=== PATIENT | female | born 1975 | race Caucasian/White ===

== ENCOUNTER 2021-02-25 10:13 | Outpatient (REF) | payer OTHER, SELFPAY ==
[2021-02-25 14:28] LABS: Iron 64 mcg/dL (30-160); Percent Iron Saturation 17 % (15-50); Total Iron Binding Capacity 367 mcg/dL (228-428); Unsaturated Iron Binding 303 ug/dL
[2021-02-25 14:50] LABS: Ferritin 32 ng/mL (10-250); Free T4 (Free Thyroxine) 0.75 ng/dL (0.71-1.85); Thyroid Stimulating Hormone 2.01 uIU/mL (0.32-4.0); Vitamin D 25-OH Total 37.5 ng/mL (>30)
[2021-02-25 17:12] LABS: Vitamin B12 487 pg/mL (200-900)
== END 2021-02-25 10:14 | disposition home or self-care (01) ==
LOC: HO.MANLDS 10:13
PROVIDERS: PCP Internal Medicine; Visit Provider Physician Assistant
DX: L65.9 Nonscarring hair loss, unspecified (principal)
CPT/HCPCS: 36415; 82306; 82607; 82728; 82746; 83540; 84439; 84443

== ENCOUNTER 2022-04-10 09:59 | Outpatient (REF) | payer OTHER, SELFPAY ==
[2022-04-10 11:20] LABS: MANUAL DIFF FLAG NO
[2022-04-10 11:24] LABS: Basophils Absolute Auto 0.1 X10*3/uL (0.0-0.2); Basophils Percent Auto 0.8 % (0-2); Eosinophils Absolute Auto 0.1 X10*3/uL (0.0-0.4); Hemoglobin 11.6 g/dl (12.0-16.0); Imm Gran Abs Auto 0.02 X10*3/uL (0.00-0.03); Imm Gran Pct Auto 0.2 % (0.0-0.4); Lymphocytes Absolute Auto 2.4 X10*3/uL (1.2-4.9); Lymphocytes Percent Auto 23.8 % (20-40); Mean Corpuscular HGB Conc 31.4 g/dl (31.0-35.0); Mean Corpuscular Hemoglobin 28.2 pg (27.0-33.0); Mean Corpuscular Volume 89.8 fL (80.0-98.0); Mean Platelet Volume 9.7 fL (9.4-12.3); Monocytes Absolute Auto 0.4 X10*3/uL (0.1-1.2); Monocytes Percent Auto 4.4 % (2-11); Neutrophils Percent Auto 69.8 % (45-73); Platelet Count 366 X10*3/uL (160-400); Red Blood Count 4.12 X10*6/uL (4.20-5.50); Red Cell Distribution Width 13.9 % (11.0-16.0); White Blood Count 10.1 X10*3/uL (4.8-10.8)
[2022-04-10 11:55] LABS: Alanine Aminotransferase 10 U/L (0-31); Albumin Level 4.2 g/dL (3.5-5.0); Alkaline Phosphatase 80 U/L (39-117); Anion Gap 13 (12-20); Aspartate Amino Transferase 10 U/L (5-31); Bilirubin Total 0.6 mg/dL (0.0-1.0); Blood Urea Nitrogen 11 mg/dL (9-16); Calcium 9.3 mg/dL (8.4-10.2); Carbon Dioxide 26 mmol/L (22-29); Chloride 103 mmol/L (96-108); Cholesterol 183 mg/dL; Estimated Glomerular Filt Rate > 60; Glucose Random 93 mg/dL (60-115); HDL Cholesterol 42 mg/dL; Iron 67 mcg/dL (30-160); LDL Cholesterol Calculated 113 mg/dl; Percent Iron Saturation 14 % (15-50); Potassium 4.2 mmol/L (3.3-5.1); Sodium 138 mmol/L (135-145); Total Iron Binding Capacity 464 mcg/dL (228-428); Total Protein 7.6 g/dL (6.5-8.0); Triglycerides 144 mg/dL; Unsaturated Iron Binding 397 ug/dL
[2022-04-10 12:08] LABS: Ferritin 24 ng/mL (10-250); Free T4 (Free Thyroxine) 0.83 ng/dL (0.71-1.85); Thyroid Stimulating Hormone 2.08 uIU/mL (0.32-4.0); Vitamin D 25-OH Total 44.1 ng/mL (>30)
[2022-04-10 12:14] LABS: Estimated Average Glucose 114 mg/dL; Hemoglobin A1c % 5.6 %
[2022-04-10 12:22] LABS: Folate 16.6 ng/mL (> or = 4.0); Vitamin B12 681 pg/mL (200-900)
[2022-04-11 14:16] LABS: Calcium (PTHI) 9.7 mg/dL (8.6-10.2); PTHI 63 pg/mL (16-77)
== END 2022-04-10 10:00 | disposition home or self-care (01) ==
LOC: HO.MANLDS 09:59
PROVIDERS: Visit Provider Physician Assistant
DX: R73.01 Impaired fasting glucose (principal); R53.83 Other fatigue
CPT/HCPCS: 36415; 80053; 80061; 82306; 82607; 82728; 82746; 83036; 83540; 83970; 84439; 84443; 85025

== ENCOUNTER 2022-06-07 12:12 | Outpatient (REF) | payer OTHER, SELFPAY ==
[2022-06-07 17:44] LABS: Iron 44 mcg/dL (30-160); Percent Iron Saturation 10 % (15-50); Total Iron Binding Capacity 449 mcg/dL (228-428); Unsaturated Iron Binding 405 ug/dL
[2022-06-07 18:01] LABS: Ferritin 24 ng/mL (10-250)
== END 2022-06-07 12:13 | disposition home or self-care (01) ==
LOC: HO.MANLDS 12:12
PROVIDERS: Visit Provider Physician Assistant
DX: D64.9 Anemia, unspecified (principal)
CPT/HCPCS: 36415; 82728; 83540

== ENCOUNTER 2022-08-02 14:53 | Outpatient (REF) | payer OTHER, SELFPAY ==
[2022-08-02 18:28] LABS: Estimated Average Glucose 123 mg/dL; Hemoglobin A1c % 5.9 %
[2022-08-02 18:31] LABS: C Reactive Protein 4.35 mg/dL (< or = 0.50); Iron 39 mcg/dL (30-160); Percent Iron Saturation 8 % (15-50); Total Iron Binding Capacity 470 mcg/dL (228-428); Unsaturated Iron Binding 431 ug/dL; Uric Acid 4.8 mg/dL (2.4-5.7)
[2022-08-02 19:03] LABS: Erythrocyte Sedimentation Rate 44 MM/HR (0-20)
[2022-08-05 08:31] LABS: Follicle Stimulating Hormone 1.2 mIU/mL; Lutenizing Hormone 0.3 mIU/mL
[2022-08-07 16:41] LABS: Lyme Abs Screen <0.90 index
[2022-08-08 06:03] LABS: Vitamin B1 12 nmol/L (8-30)
[2022-08-08 14:18] LABS: Vitamin B6 3.7 ng/mL (2.1-21.7)
[2022-08-09 16:52] LABS: Progesterone <0.1 ng/mL
[2022-08-10 04:32] LABS: Estradiol Free 0.23 pg/mL; Estradiol, Ultrasensitive 16 pg/mL
== END 2022-08-02 14:54 | disposition home or self-care (01) ==
LOC: HO.MANLDS 14:53
PROVIDERS: Physician Assistant; Visit Provider Internal Medicine
DX: M25.571 Pain in right ankle and joints of right foot (principal); N95.1 Menopausal and female climacteric states
CPT/HCPCS: 36415; 82670; 82681; 83001; 83002; 83036; 83540; 84144; 84207; 84425; 84550; 85652; 86140; 86617; 86618

== ENCOUNTER 2024-08-01 10:08 | Outpatient (REF) | payer OTHER, SELFPAY ==
[2024-08-01 13:06] LABS: MANUAL DIFF FLAG NO
[2024-08-01 13:14] LABS: Basophils Absolute Auto 0.1 X10*3/uL (0.0-0.2); Basophils Percent Auto 0.6 % (0-2); Eosinophils Absolute Auto 0.2 X10*3/uL (0.0-0.4); Eosinophils Percent Auto 1.5 % (0-4); Hematocrit 40.3 % (37.0-47.0); Imm Gran Abs Auto 0.05 X10*3/uL (0.00-0.03); Imm Gran Pct Auto 0.5 % (0.0-0.4); Lymphocytes Absolute Auto 2.6 X10*3/uL (1.2-4.9); Lymphocytes Percent Auto 25.9 % (20-40); Mean Corpuscular HGB Conc 32.3 g/dl (31.0-35.0); Mean Corpuscular Hemoglobin 29.4 pg (27.0-33.0); Mean Corpuscular Volume 91.2 fL (80.0-98.0); Mean Platelet Volume 9.8 fL (9.4-12.3); Monocytes Absolute Auto 0.5 X10*3/uL (0.1-1.2); Neutrophils Absolute Auto 6.6 x10*3/uL (2.0-8.3); Neutrophils Percent Auto 66.5 % (45-73); Platelet Count 307 X10*3/uL (160-400); Red Blood Count 4.42 X10*6/uL (4.20-5.50); Red Cell Distribution Width 13.8 % (11.0-16.0); White Blood Count 9.9 X10*3/uL (4.8-10.8)
[2024-08-01 14:08] LABS: Folate 9.5 ng/mL (> or = 4.0); Vitamin B12 529 pg/mL (200-900)
[2024-08-01 14:13] LABS: Alanine Aminotransferase 12 U/L (0-31); Alkaline Phosphatase 88 U/L (39-117); Anion Gap 11 (12-20); Aspartate Amino Transferase 11 U/L (5-31); Bilirubin Total 0.4 mg/dL (0.0-1.0); Blood Urea Nitrogen 14 mg/dL (9-16); Calcium 9.4 mg/dL (8.4-10.2); Carbon Dioxide 28 mmol/L (22-29); Chloride 105 mmol/L (96-108); Cholesterol 187 mg/dL (<200); Estimated Glomerular Filt Rate > 60; Glucose Random 80 mg/dL (60-115); HDL Cholesterol 51 mg/dL (>40); Iron 61 mcg/dL (30-160); LDL Cholesterol Calculated 110 mg/dL (<100); Percent Iron Saturation 21 % (15-50); Potassium 4.1 mmol/L (3.3-5.1); Sodium 140 mmol/L (135-145); Total Iron Binding Capacity 290 mcg/dL (228-428); Total Protein 7.6 g/dL (6.5-8.0); Triglycerides 133 mg/dL (<150); Unsaturated Iron Binding 229 ug/dL
[2024-08-01 14:37] LABS: Ferritin 93 ng/mL (10-250); T4 Thyroxine 6.4 ug/dL (4.5-12.0); Thyroid Stimulating Hormone 2.26 uIU/mL (0.32-4.0)
== END 2024-08-01 10:09 | disposition home or self-care (01) ==
LOC: HO.MANLDS 10:08
PROVIDERS: Visit Provider Physician Assistant
DX: Z00.00 Encounter for general adult medical examination without abnormal findings (principal)
CPT/HCPCS: 36415; 80053; 80061; 82306; 82607; 82728; 82746; 83540; 84436; 84443; 85025

== ENCOUNTER 2025-08-19 09:36 | Outpatient (REF) | payer OTHER, SELFPAY ==
--- OUTSIDE RECORDS SUMMARY | 2025-08-19 11:07 | XMS_ITS | Data Portability ---
Author Organization [facility] Telehealth Patient Home Address [address] [place] [address] Assessment No assessment recorded. Plan of Treatment Reminders Order Date Submit Date Provider Last Modified By Organization Details Last Modified Time Details Appointments ANNUAL EXAM 2024 09:00A M ERNESTO KAUR Not available Not available Not available ANNUAL EXAM 2025 09:00A M ERNESTO KAUR Not available Not available Not available Lab ESR (erythroc yte sedimenta tion rate), blood 2024 [facility], [address] [place] [address], [id number], 08/19/2025 09:28:20 C-reactiv e protein, quantitat herminia, serum or plasma 2024 [facility], [address] [place] [address], [place], [address], 08/19/2025 09:28:20 hemoglobi n A1c, QN, blood 2024 [facility], [address] [place] [address], [id number], 08/19/2025 09:28:20 CMP, serum or plasma 2024 [facility], [address] [place] [address], [id number], 08/19/2025 09:28:20 CBC w/ auto diff 2024 025 [facility], [address] [place] [address], [id number], 08/19/2025 09:28:20 lipid panel, blood 2024 025 [facility], [address] [place] [address], [id number], 08/19/2025 09:28:20 TSH + free T4, serum 2024 025 [facility], [address] [place] [address], [id number], 08/19/2025 09:31:01 urinalysi s complete, reflex culture 2024 025 [facility], [address] [place] [address], [id number], 03/09/2025 23:56:46 urinalysi s, dipstick 2024 025 [facility], [address] [facility], [address], [place], [address], 03/09/2025 11:54:30 CMP, serum or plasma 2023 024 [facility], [address] [place] [address], [id number], 08/04/2024 16:31:08 CBC w/ auto diff 2023 024 [facility], [address] [place] [address], [id number], 08/01/2024 09:55:18 lipid panel, blood 2023 024 [facility], [address] [place] [address], [id number], 08/01/2024 09:55:18 vitamin D, 25-hydrox y, total, serum 2023 [facility], [address] [place] [address], [address], 08/01/2024 09:55:18 TSH + free T4, serum 2023 [facility], [address] [place] [address], [address], 08/01/2024 09:55:18 hemoglobi n A1c, QN, blood 2023 024 [facility], [address] [place] [address], [address], 08/01/2024 09:55:18 vitamin B12 + folate, serum or blood 2023 [facility], [address] [place] [address], [address], 08/01/2024 09:55:18 iron + TIBC + ferritin, serum 2023 [facility], [address] [place] [address], [id number], 08/01/2024 09:55:18 CMP, serum or plasma 2022 023 [facility] (Centralized Electronic Ordering - All Locations), Patient Can Go To The Location Of Their Choice, 07/26/2023 00:27:12 CBC w/ auto diff 2022 023 [facility] (Centralized Electronic Ordering - All Locations), Patient Can Go To The Location Of Their Choice, 07/24/2023 10:01:06 lipid panel, blood 2022 023 [facility] (Centralized Electronic Ordering - All Locations), Patient Can Go To The Location Of Their Choice, 07/24/2023 09:55:23 vitamin D, 25-hydrox y, total, serum 2022 023 [facility] (Centralized Electronic Ordering - All Locations), Patient Can Go To The Location Of Their Choice, 07/24/2023 09:55:24 TSH + free T4, serum 2022 023 [facility] (Centralized Electronic Ordering - All Locations), Patient Can Go To The Location Of Their Choice, 07/24/2023 09:55:23 hemoglobi n A1c, QN, blood 2022 023 [facility] (Centralized Electronic Ordering - All Locations), Patient Can Go To The Location Of Their Choice, 07/24/2023 09:55:24 vitamin B12 + folate, serum or blood 2022 023 [facility] (Centralized Electronic Ordering - All Locations), Patient Can Go To The Location Of Their Choice, 07/24/2023 09:55:24 iron + TIBC + ferritin, serum 2022 023 [facility] (Centralized Electronic Ordering - All Locations), Patient Can Go To The Location Of Their Choice, 07/24/2023 09:55:24 estradiol , serum 2021 [facility], [address] [place] [address], [id number], 08/10/2022 12:46:09 lh + FSH, serum 2021 [facility], [address] [place] [address], 359[address], 08/07/2022 11:36:16 progester one, serum 2021 [facility], [address] [place] [address], [address], 08/10/2022 12:46:09 ESR (erythroc yte sedimenta tion rate), blood 2021 [facility], [address] [place] [address], [address], 08/03/2022 12:09:20 C-reactiv e protein, quantitat herminia, serum or plasma 2021 [facility], [address] [place] [address], [address], 08/02/2022 14:40:32 uric acid, serum or plasma 2021 [facility], [address] [place] [address], [address], 08/03/2022 12:09:20 lyme disease igg+igm, serum, reflex western blot 2021 [facility], [address] [place] [address], 56[address], 08/02/2022 14:40:33 iron + TIBC + ferritin, serum 2021 [facility], [address] [place] [address], 599[address], 08/03/2022 12:09:20 vitamin B1 (thiamine ), blood 2021 [facility], [address] [place] [address], [address], 08/08/2022 13:11:49 vitamin B6 (pyridoxi ne), plasma 2021 [facility], [address] [place] [address], [address], 08/09/2022 12:28:43 hemoglobi n A1c, QN, blood 2021 [facility], [address] [place] [address], [address], 08/02/2022 14:40:33 Referral None recorded. Procedures None recorded. Surgeries None recorded. Imaging US, pelvis, complete - possible bilateral inguinal hernia 2022 023 [facility], [address] [place], [address], 07/25/2023 08:27:34 XR, foot, 3 or more view - BILATERAL FOOT XR 2021 022 [facility], [address] [place], [address], 08/08/2022 08:33:04 Medication Orders ondansetr on 8 mg disintegr ating tablet 2024 025 [id number], [address] [place], [place], [id number], 08/19/2025 09:24:36 Bactrim DS 800 mg-160 mg tablet 2024 025 [facility][id number], [address] [place] [address], [id number], 08/19/2025 09:02:18 Patient TargetsNo targets recorded. Patient InstructionsNo instructions recorded. Reason for Referral None Reported. Results Created Date Observation Date Name Description Value Unit Range Abnormal Flag Note LastModifiedBy Organization Detail LastModifiedTime 08/07/2008/07/2022 XR, foot, 3 or more view No observ ation record ed. [facility] [address] [place], [address], 08/08/2022 10:52:01 08/07/2008/07/2022 XR, foot, 3 or more view No observ ation record ed. [facility] [address] [place], [address], 08/08/2022 12:58:04 10/18/20 22 10/13/2022 MAMMO , scree mercedez, digit al, bilat eral No observ ation record ed. [facility] [address] [place], [address], 10/18/2022 17:10:41 08/13/20 23 08/13/2023 US, pelvi s, limit ed No observ ation record ed. [facility] [address] [place], [address], 08/14/2023 15:32:18 10/15/20 23 10/15/2023 MAMMO , scree mercedez, digit al, bilat eral No observ ation record ed. [facility] [address] [place], [address], 10/15/2023 16:26:51 01/08/20 25 01/07/2025 MAMMO , scree mercedez, digit al, bilat eral No observ ation record ed. [email or web address] [facility] - Callback Orders Only [address] [place], [address], 01/09/2025 08:30:57 02/28/20 25 02/27/2025 XR, lumbo sacra l spine , 2 or 3 view No observ ation record ed. [facility] Not Available 2024 16:38:55 Result Notes None recorded. Problems Name Problem SNOMED Code Status Onset Date Resolution Date Notes Provider Name and Address Organization Details Recorded Time Irritable bowel syndrome 88234739 Active 2017 Not Available [employer] 0 12:34:10 Anxiety 90436871 Active 2017 Not Available [employer] 0 12:34:10 Impaired fasting glycemia 569286663 Active 2017 ERNESTO KAUR [address] [facility], [place], [address], [facility] 5 09:24:57 Mild recurrent major depression 65605072 Active 2017 Not Available [employer] 0 12:34:10 Gastroesop hageal reflux disease 183724367 Active 2017 Not Available [employer] 0 12:34:10 Fatigue 83513756 Active 2021 ERNESTO KAUR [address] [place], [address], [facility] 2 09:40:28 Loss of hair 819311691 Active 2021 ERNESTO KAUR [address] [place], [address], [facility] 2 09:40:50 Dry skin 81814822 Active 2021 ERNESTO KAUR [address] [place], [address], [facility] 2 09:40:55 Overweight 942116542 Active 2021 ERNESTO KAUR [address] [place], [address], [facility] 2 09:52:26 Pain of multiple joints 98288636 Active 2021 ERNESTO KAUR [address] [place] [address], [address], [facility] 2 14:33:59 Menopausal flushing 326783195 Active 2021 ERNESTO KAUR [address] [place] [address], [address], [facility] 2 14:35:20 Foot pain 16857082 Active 2021 ERNESTO KAUR [address] [place] [address], [address], [facility] 2 14:37:34 Myalgia/my ositis - multiple 484335282 Active 2021 ERNESTO KAUR [address] [place] [address], [address], [facility] 2 12:58:38 Inguinal pain 128985270 Active 2022 ERNESTO KAUR [address] [place] [address], [address], [facility] 3 09:59:53 Colorectal cancer detected by DNA-based stool screening 087795917 Active 2023 ERNESTO KAUR [address] [place], [address], [facility] 4 15:37:54 Depressive disorder 41900073 Active 2023 ERNESTO KAUR [address] [place] [address], [address], [facility] 4 09:51:24 B-cell lymphoma (clinical) 543192074 Active 2023 ERNESTO KAUR [address] [place] [address], [address], [facility] 4 11:06:18 Low back pain 063945534 Active 2023 ERNESTO KAUR [address] [place] [address], [address], [facility] 4 11:06:32 Streptococ bella sore throat 99696291 Active 2024 ERNESTO KAUR [address] [place] [address], [address], [facility] 5 15:00:51 Lumbar radiculopa thy 046490272 Active 2024 ERNESTO KAUR [address] [place] [address], [address], [facility] 5 16:39:26 Sore throat 118565627 Active 2024 ERNESTO KAUR [address] [place] [address], [address], [facility] 5 12:46:53 Acute urinary tract infection 896947756 Active 2024 ERNESTO KAUR [address] [place] [address], [address], [facility] 5 11:47:49 Nausea 252959768 Active 2024 ERNESTO KAUR [address] [place], [address], [facility] 5 09:23:00 Chronic low back pain 048038444 Active 2024 ERNESTO KAUR [address] [place], [address], [facility] 5 09:25:48 Notes:Nevi ( Dr. Lauren Funez) Problem Notes None recorded. Procedures Surgical History Date Name Laterality Status Provider Name and Address Organization Details Recorded Time 5 Most Recent Mammogram completed Anca Drew [facility] 01/09/2025 08:30:34 8 completed Jia Lobo [facility] 09/13/2018 15:02:30 Imaging Results None recorded. Procedure Notes None recorded. Medical Equipment None Reported. Allergies No known drug allergies Medications Name Sig Start Date Stop Date Status Note LastModified by Organization Details LastModified Time cyclobenzap rine 10 mg tablet TK 1 T PO TID FOR 15 DAYS 02/25 completed Not Available Not Available Not Available amoxicillin 500 mg capsule 08/10 completed Not Available Not Available Not Available prednisone 10 mg tablet take 5 tabs x 3 daystake 4 tabs x 3 daystake 3 tabs x 3 daystake 2 tabs x 3 days take 1 tab x 3 days 11/04 completed Not Available Not Available Not Available azithromyci n 250 mg tablet TAKE 2 TABLETS (500 MG) BY ORAL ROUTE ONCE DAILY FOR 1 DAY THEN 1 TABLET (250 MG) BY ORAL ROUTE ONCE DAILY FOR 4 DAYS 08/19 completed Not Available Not Available Not Available ibuprofen 800 mg tablet Take 1 tablet 3 times a day by oral route. 11/21 completed Not Available Not Available Not Available hydrocodone 5 mg-acetamin ophen 325 mg tablet Take 1 tablet every 6 hours by oral route for 7 days. 08/10 completed Not Available Not Available Not Available clonazepam 0.5 mg tablet TAKE 1 TABLET BY MOUTH EVERY DAY NEEDED active Not Available Not Available No t Available valacyclovi r 500 mg tablet TAKE 2 TABLETS BY MOUTH THREE TIMES DAILY FOR 7 DAYS 08/01 completed Not Available Not Available Not Available sulfamethox azole 800 mg-trimetho prim 160 mg tablet TAKE 1 TABLET BY MOUTH EVERY 12 HOURS FOR 10 DAYS 08/19 completed Not Available Not Available Not Available triamcinolo ne acetonide 0.1 % topical cream APPLY TOPICALLY TO TRUNK AND EXTREMITI ES TWICE DAILY NEEDED FOR ITCHING. DO NOT USE ON FACE 08/19 completed Not Available Not Available Not Available ondansetron 8 mg disintegrat ing tablet Place 1 tablet twice a day by transling ual route as needed for 7 days. 2024 active Not Available Not Available Not Avai lable amoxicillin 875 mg tablet TAKE 1 TABLET BY MOUTH EVERY 12 HOURS FOR 7 DAYS DIRECTED 08/19 completed Not Available Not Available Not Available famotidine 20 mg tablet Take 1 tablet twice a day by oral route. 06/29 completed Not Available Not Available Not Available omeprazole 20 mg capsule,del ayed release Take 1 capsule every day by oral route. 08/19 completed Not Available Not Available Not Available methylpredn isolone 4 mg tablets in a dose pack FOLLOW PACKAGE DIRECTION S 08/19 completed Not Available Not Available Not Available ondansetron 4 mg disintegrat ing tablet PLACE 1 TABLET ON THE TONGUE AND ALLOW TO DISSOLVE TAKE EVERY 6 HOURS NEEDED FOR NAUSEA/VO MITING 08/01 completed Not Available Not Available Not Available escitalopra m 10 mg tablet TAKE 1 TABLET BY MOUTH EVERY DAY 2024 active Not Available Not Available Not Avai lable Laxative (bisacodyl) 5 mg tablet TAKE 4 TABLETS BY MOUTH FOR ONE DOSE DIRECTED 08/19 completed Not Available Not Available Not Available Wellbutrin XL 150 mg 24 hr tablet, extended release Take 1 tablet every day by oral route for 30 days. 08/10 completed Not Available Not Available Not Available escitalopra m 5 mg tablet TAKE 1 TABLET BY MOUTH EVERY DAY 07/24 completed Not Available Not Available Not Available chlorhexidi ne gluconate 0.12 % mouthwash SWISH AND SPIT 10 ML BY MOUTH THREE TIMES DAILY 08/19 completed Not Available Not Available Not Available GaviLyte-G 236 gram-22.74 gram-6.74 gram-5.86 gram oral solution MIX AND DRINK DIRECTED 08/01 completed Not Available Not Available Not Available Fluarix Quad 5175-5024 (PF) 60 mcg (15 mcg x 4)/0.5 mL IM syringe 02/25 completed Not Available Not Available Not Available Afluria Quad (PF) 60 mcg (15 mcg x 4)/0.5 mL IM syringe 02/25 completed Not Available Not Available Not Available Fluarix Quad (PF) 60 mcg (15 mcg x 4)/0.5 mL IM syringe 02/25 completed Not Available Not Available Not Available LoJaimiess 0.1 mg-20 mcg (84)/10 mcg (7) tablets,3 month dose pack TAKE 1 TABLET BY MOUTH DAILY active Not Available Not Available No t Available Afluria Qd 2019- (36 mos up)(PF)60 mcg (15 mcg x4)/0.5 mL IM syringe 02/25 completed Not Available Not Available Not Available Sutab 1.479-0.188 -0.225 gram tablet TAKE 12 TABLETS BY MOUTH TWICE DAILY. TAKE THE FIRST DOSE THE EVENING BEFORE AND SECOND DOSE THE MORNING OF COLONOSCO PY 08/01 completed Not Available Not Available Not Available Vitals Date Recorded Body height Heart rate Oxygen saturation Oxygen saturation in Arterial blood by Pulse oximetry Systolic And Diastolic Provider Name and Address Organization Details Last Updated DateTime 5 156.21 cm 85 /min 97 % 97 % 136/88 mm[Hg] Anca Jacobo [facility] 5 11:37:57 Date Recorded Body height Body mass index (BMI) Body weight Heart rate Oxygen saturation Oxygen saturation in Arterial blood by Pulse oximetry Systolic And Diastolic Provider Name and Address Organization Details Last Updated DateTime 3 156.21 cm 44.4 kg/m2 279899. 58 g 94 /min 97 % 97 % 126/78 mm[Hg] Lurdes Dickson [facility] 3 09:35:05 Date Recorded Body height Body mass index (BMI) Body weight Heart rate Oxygen saturation Oxygen saturation in Arterial blood by Pulse oximetry Systolic And Diastolic Provider Name and Address Organization Details Last Updated DateTime 4 156.21 cm 46 kg/m2 672708. 75 g 84 /min 96 % 96 % 122/82 mm[Hg] Anca Jacobo [facility] 4 09:37:28 Date Recorded Body height Oxygen saturation Oxygen saturation in Arterial blood by Pulse oximetry Heart rate Systolic And Diastolic Provider Name and Address Organization Details Last Updated DateTime 2 156.21 cm 98 % 98 % 96 /min 122/70 mm[Hg] Tisha Perezner [facility] 2 14:21:22 Date Recorded Body height Body mass index (BMI) Body weight Heart rate Oxygen saturation Oxygen saturation in Arterial blood by Pulse oximetry Systolic And Diastolic Provider Name and Address Organization Details Last Updated DateTime 5 156.21 cm 46.5 kg/m2 792040. 09 g 80 /min 94 % 94 % 130/68 mm[Hg] Renetta Finch [facility] 5 09:04:42 Social History Question Answer Notes LastModified by Organizat ion Details LastModified Time Tobacco Smoking Status Never Smoker Jia dai [facility] 05/22/2018 11:39:41 What Was The Date Of Your Most Recent Tobacco Screening? 08/19/2025 [email or web address] Information not available 08/19/2025 Sex: Unknown Functional Status None recorded. Mental Status None recorded. Family History Nothing Reported. Medical History Condition Response Coronary Artery Disease N Gout N Other N Kidney Stones N Blood Diseases N Blood Transfusion N Breast Cancer N Lung Disease N Depression N COPD N Defects or Inherited Disease N Anxiety Disorder N Muscle, Joint, or Bone Problems N Obesity N Vision or Eye Problems N Arthritis N Infertility N Polyps N Mental Disorder N Cancer N Stroke N Varicosities N Endometriosis N Bladder or Kidney Problems N High Cholesterol N Liver Disease N Fibromyalgia N Headaches N Kidney Disease N Allergies/Hayfever N Heart Problems N Hospitalizations N Thyroid Problems N GI Problems N Eating Disorder N Skin Problems N Anemia N MRSA exposure N Constipation N Mental Illness N Diabetes N Ovarian Cancer N Seizures/Epilepsy N Tuberculosis N Congestive Heart Failure (CHF) N Eczema N Abuse/Domestic Violence N Diverticulitis N Asthma N Reflux/GERD N Hepatitis N Heart Disease N Pulmonary Embolism N Hypertension N Chicken Pox N Autism Spectrum Disorder (ASD) N Osteoporosis N Gynecological History Statement/Question Response Abnormal Pap N 08/01/2018 Partner Vasectomy Current Control Method Partner Vas ectomy Most Recent Mammogram 01/07/2025 Age at Menarche 14 Age at First Child 29 Obstetrics History GPAL:G 0 P 0 0 0 0 Immunizations Vaccine Type Date Status Note Provider Nam e and Address Organization Details Recorded Time Influenza, split virus, quadrivalent, preservative 1 completed Ivy [facility] 07/24/2023 09:29:20 influenza, unspecified formulation 5 completed ERNESTO KAUR [address] [place] [address], [address], [facility] 08/19/2025 09:09:31 Influenza, split virus, quadrivalent, preservative 9 completed Ivy Duval [facility] 07/24/2023 09:29:20 Influenza, split virus, quadrivalent, preservative 0 completed Ivy dai, [facility] 07/24/2023 09:29:20 Tdap 0 completed Jia daiEdith [facility] 08/10/2020 11:46:46 COVID-19 vaccine, vector-nr, rS-ChAdOx1, PF, 0.5 mL 1 completed Ivy Duval [facility] 07/24/2023 09:29:20 COVID-19 vaccine, vector-nr, rS-ChAdOx1, PF, 0.5 mL 1 completed Ivy dai [facility] 07/24/2023 09:29:20 Influenza, split virus, quadrivalent, preservative 8 completed Ivy Duval [facility] 07/24/2023 09:29:20 Past Encounters Encounter ID Performer Location Encounter Start Date Encounter Closed Date Diagnosis/Indication Diagnosis SNOMED-CT Code Diagnosis ICD10 Code Diagnosis IMO Codes Diagnosis Note [id number] Rip Hamilton DO [facility] [address] [facility],[place] [address] 05/22/2018 11:31:24 05/22/2018 13:42:35 Adult health examination 371315726 Z00.01 healthy diet increase exercise Anxiety 75994085 F41.9 Mild recur rent major depression 37977805 F33.0 [id number] Rip Cathy Hamilton [facility] [address] [place] [address] 09/13/2018 14:58:35 09/13/2018 16:08:43 Anxiety 87686955 F41.9 stable Mild recur rent major depression 13987828 F33.0 stable Body mass index 30+ - obesity 798138043 Z68.36 healthy diet and exercise [id number] Rip Hamilton [facility] [address] [facility],[place] [address] 10/15/2018 15:10:33 10/15/2018 17:10:55 Acute low back pain 093404494 M54.5 Pain of ri ght hip joint 3741054738 97828 M25.551 [id number] Rip Hamilton [facility] Internal [facility] [address] [facility],[place] [address] 11/21/2019 08:53:41 11/21/2019 09:38:03 Adult health examination 334595024 Z00.00 healthy diet increase exercise Active or passive immunization 812079495 Z23 Mild recur rent major depression 54773473 F33.0 stable Anxiety 02861873 F41.9 a little worse this time of year stopped escitalopr am due to weight gain Vitamin D deficiency 347 39777 E55.9 Pain of mu ltiple joints 59283123 M25.50 [id number] Rip Hamilton [facility] [address] [facility],[place] [address] 08/10/2020 11:40:52 08/10/2020 13:27:45 Acute low back pain 771576350 M54.5 will check MRI now as PT was unsuccessf ul former pred taper and other medication trials unsuccessf ul Anxiety 97411672 F41.9 stable when she needs refill of [place] [id number] Rip Hamilton [facility] [address] [facility],[place] [address] 02/25/2021 09:48:38 02/25/2021 11:21:40 Low back pain 561987616 M54.5 will refer out to PT Gastroesop hageal reflux disease 791606980 K21.9 will send in referral Loss of hair 762998648 L 65.9 will work up for hair loss Anxiety 56847329 F41.9 the patient is not interested in maintenanc e when she needs refill of clonazapam this [place] [facility] [place] [id number] Rip Hamilton DO [facility] [address] [facility], [place] [address] 05/24/2021 08:10:01 05/24/2021 16:43:42 Anxiety 18894036 F41.9 will trial lexaprodid well on celexa, though it caused weight gaindiscus sed switching to lexapro per patient request, will fu at her CPE Mild recur rent major depression [id number] F33.0 will fu at CPE 22484 Rip Hamilton [facility] Internal Medicine [address] [facility], [place] [address] 06/29/2021 13:27:17 06/29/2021 14:04:12 Active or passive immunization [id number] Z23 advisedhad flu shot Adult heal th examination 829760359 Z00.00 BP recheck was 122/85 Anxiety 72403370 F41.9 will increase dosage Fatigue 25181796 R53.83 will fu with sleep medicine referral 23535 Rip Hamilton DO [facility] Internal Medicine [address] [facility], [place] [address] 04/10/2022 09:25:32 04/10/2022 11:31:08 Anxiety 96571638 F41.1 will continue on 5 mg, will adjust up again when needed Impaired f asting glycemia 765646844 R73.01 will recheck labs Fatigue 69529043 R53.83 will fu with lab-work Loss of hair 327938607 L 63.8 will work up for hair loss Dry skin 28916777 L85.3 increased dry skin Overweight 153824922 E66 .3 70483 Rip Hamilton [facility] Internal Medicine [address] [facility], [place] [address] 08/02/2022 14:15:40 08/02/2022 15:07:16 Pain of multiple joints 30375652 M25.571 will fu with more bloodwork Menopausal flushing 1983 05236 N95.1 will recheck hormone level Foot pain 78117591 M79.6 72 will fu with XR foot bilateral 29523 Rip Hamilton [facility] Internal Medicine [address] [facility], [facility] [place] [address] 07/24/2023 09:29:01 07/24/2023 10:06:23 Anxiety 10455295 F41.1 stable Gastroesop hageal reflux disease 026100490 K21.9 stable Active or passive immunization 072378978 Z23 advised Adult heal th examination 993805045 Z00.00 BP recheck was 126/78 Mild recur rent major depression 96534503 F33.0 stable Inguinal pain 819008750 R10.2 [id number] Rip Hamilton [facility] Internal Medicine [address] [facility],[place] [address] 08/01/2024 09:26:27 08/01/2024 10:04:29 Active or passive immunization 954608402 Z23 advised Adult heal th examination 057764564 Z00.00 BP recheck was 123/82 Depression screening 171 860762 Z13.31 SCREENING NEGATIVE Depressive disorder 3548 9007 F33.0 stable 606060 Rip Hamilton [facility] Internal Medicine [address] [facility], [facility] [place] [address] 03/09/2025 11:26:04 03/09/2025 15:04:39 Depression screening 565458055 Z13.31 SCREENING NEGATIVE Acute urin [place] tract infection 769190921 N39.0 4852123 positive leuks and nitratesha s period (spotting) explains bloodsome sugar 962260 Rip Hamilton [facility] Internal Medicine [address] [facility], [place] [address] 08/19/2025 08:55:31 08/19/2025 09:33:04 Depression screening 525154815 Z13.31 SCREENING NEGATIVE General ex amination of patient 217057652 Z00.00 389743 BP recheck was 123/82 Nausea 476974023 R11.0 70028 will set up with anti nausea medication Impaired f asting glycemia 607873330 R73.01 512993 will recheck labs Chronic low back pain 27 3703395 M54.40 G89.29 83361871 will set up with recheck inflammato ry makers Thyroid di sorder screening 201577428 Z13.29 109752 Health Concerns Section Related Observation LastModified by Organization Detai ls LastModified Time None Recorded Concern Status LastModified by Organization Details LastModified Time None Recorded Advance Directives Directive None Recorded Payers Insurance Date Sequence Insurance Name Policy Number Policy Zeng Covered Member ID Zeng Member ID Guarantor Name 08/16/2025 1 AMY [id number] Emir Donis [id number] Emir Donis Notes Date Note Type Note Provider Name and Address Organization Details Recorded Time 08/02/20 22 text/htm l ROS as noted in the HPI c/o hot flashes, joint pain will do full work up; additional labs from prior and hormone level check will also have patient do XR feet bilateral as well do see if she has significant plaque build up, arthritis, crystals will fu with patient after results ERNESTO KAUR [address] [place] [address], [place], [address], [facility] Internal Medicine 08/02/2022 14:48:37 07/24/20 23 text/htm l Annual WellnessReported by PatientSocial/Behavioral HistoryFor physical activity, patient reportsdoes not exercise on a regular basisanddecreased physical activitybut reportsgood physical conditionanddiscussed weightbearing activities. For diet and nutrition, patient reportshealthy diet,discussed vitamin and supplement use,discussed portion control,discussed maintaining calcium balance, anddiscussed diet improvement. For fracture risk, patient reportsno history of fractures,no recent explained fracture,no sudden unexplained fractures, andno previous musculoskeletal injuries. For additional lifestyle factors, patient reportsno tobacco useanddrinks alcohol (mild-moderate).Mental Status:For depression risk, patient reportsnever feels sad, empty, or tearful,no loss of interest in activities,no significant changes in weight,no sleep disturbances or insomnia,no agitation,no loss of energy,no feelings of worthlessness or guilt,no thoughts of suicide,no history of depression, andno history of mood disorders.Functional AbilityFor hearing, patient reportsno loss of hearing. For vision, patient reportsno vision problems. BP is excellent ERNESTO KAUR [address] [place], [address], [facility] Internal Medicine 07/24/2023 10:02:45 08/01/20 24 text/htm l Annual WellnessReported by PatientSocial/Behavioral HistoryFor diet and nutrition, patient reportshealthy diet,discussed vitamin and supplement use,discussed portion control,discussed maintaining calcium balance, anddiscussed diet improvement. For fracture risk, patient reportsno history of fractures,no recent explained fracture,no sudden unexplained fractures, andno previous musculoskeletal injuries. For physical activity, patient reportsexercises on a regular basis,recent increase in physical activity,good physical condition,discussed weightbearing activities, anddiscussed exercise habits. For additional lifestyle factors, patient reportsno tobacco useanddrinks alcohol (mild-moderate).Mental Status:For depression risk, patient reportsnever feels sad, empty, or tearful,no loss of interest in activities,no significant changes in weight,no sleep disturbances or insomnia,no agitation,no loss of energy,no feelings of worthlessness or guilt,no thoughts of suicide,no history of depression, andno history of mood disorders.Functional AbilityFor hearing, patient reportsno loss of hearing. For vision, patient reportsno vision problems.ROS as noted in the HPI the patient is currently taking a PPI for the GERD symptoms, has to wait until she does a full month of this before insurance will improve an endoscopyrecent colonoscopy was normal, working with GI to get a endoscopy the patient has shingles on the right upper arm, anteriorlyhappened in April saw UC, given anti-viral from them advised on the Tdap vaccine, also also next year at 50 y/o to get her shingles vaccine the patient has diffuse muscle pain, heart palpitations (feels like a flutter intermittently, no trigger), BP is elevatedongoing itchiness throughout the body? nura-menopause, recently stopped her BC so her DIVISIONAL STOREKEEPER can test her levels in a few months will also set her up for her routine lab work with some additional ERNESTO KAUR [address] [place], [address], [facility] Internal Medicine 08/01/2024 10:03:05 03/09/20 25 text/htm l ROS as noted in the HPI c/o UTI symptoms acute UTI symptomsstarted yesterday nightthe patient reports that she is having burning, frequency and mild incontinencepos leuks and nitrates on dipstickthe patient denies fever at this time the patient had a resp infection recently, very possible it could be why she has the UTI nowusing Azorecommended increasing water intake and reststart on alt abx urine sent out for culture ERNESTO KAUR [address] [place], [address], [facility] Internal [facility] 03/09/2025 11:53:15 08/19/20 25 text/htm l Annual WellnessReported by PatientSocial/Behavioral HistoryFor diet and nutrition, patient reportshealthy diet,discussed vitamin and supplement use,discussed portion control,discussed maintaining calcium balance, anddiscussed diet improvement. For fracture risk, patient reportsno history of fractures,no recent explained fracture,no sudden unexplained fractures, andno previous musculoskeletal injuries. For physical activity, patient reportsexercises on a regular basis,recent increase in physical activity, andgood physical condition. For additional lifestyle factors, patient reportsno tobacco useanddrinks alcohol (mild-moderate).Mental Status:For depression risk, patient reportsnever feels sad, empty, or tearful,no loss of interest in activities,no significant changes in weight,no sleep disturbances or insomnia,no agitation,no loss of energy,no feelings of worthlessness or guilt,no thoughts of suicide,no history of depression, andno history of mood disorders.Functional AbilityFor hearing, patient reportsno loss of hearing. For vision, patient reportsno vision problems.up to date with dentist appt'sROS as noted in the HPI the patient had to restart her BC due to continued bleedingthe patient has to restart PT for her back now that the bleeding has resolved ERNESTO KAUR [address] [place], [address], [facility] Internal Medicine 08/19/2025 09:32:15 OBGyn Episode No OBEpisode recorded.
--- OUTSIDE RECORDS SUMMARY | 2025-08-19 11:07 | XMS_ITS | Encounter Summary ---
Author Organization [facility] Address [address] [place] [address] Phone Care Team Providers Care Analytics Intern Name Role Phone Rip Hamilton DO Unavailable Bigda, Rip A DO Primary Care Provider [phone] Bigda, Rip A DO Primary Care Provider [phone] Encounter Details Date Type Department Care Team (Late Contact Info) Description 07/16/[address] [address] Social History Tobacco Use Types Packs/Day Years Used Date Smoking Tobacco: Never Smokeless Tobacco: Never Alcohol Use Standard Drinks/Week Comments Yes 0 (1 standard drink = 0.6 oz pur e alcohol) weekly Education Answer Date Recorded Are you interested in more education? Not on manjinder e 02/23/2023 Are you concerned about learning? Not on file 02/23/2023 No 02/23/2023 No 02/23/2023 Digital Access Answer Date Recorded No 03/23/2023 No 03/23/2023 Reliable internet access at home? Not on file 03/23/2023 Device with a working camera? 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 Not on file Not on file documented as of this encounter Plan of Treatment Upcoming Encounters Date Type Department Care Team (Late st Contact Info) Description 07/21/2025 Procedure [facility], [address] [address] 03/19/2026 7:45 AM EDT Appointment [address] [address] Perlita Hernandez MD [address] [place] [address] documented as of this encounter Visit Diagnoses Not on filedocumented in this encounter Care Teams Analytics Intern Relationship Specialty Start Date End Date Rip Hamilton DO PCP - General 11/01/17 08/06/25 Rip Hamilton DO [address] [place] [address] [place] [address] PCP - General Internal Medicine 08/07/25 Rip Hamilton DO Historical LMR Provider 08/14/17 documented as of this encounter Additional Source Comments The information contained in this document represents components of the legal health record. It is not the complete legal health record.[facility]
--- OUTSIDE RECORDS SUMMARY | 2025-08-19 11:07 | XMS_ITS | Encounter Summary ---
Author Organization [facility] Address [address] [place] [address] Phone Care Team Providers Care Biochemist Name Role Phone Rcahelgil Rip Kailey DO Unavailable Aracely Galdamez INDUSTRIAL TRUCK OPERATOR Unavailable [phone] Adia Suggs INDUSTRIAL TRUCK OPERATOR Unavailable [phone] Rochelle Martinez INDUSTRIAL TRUCK OPERATOR Unavailable [phone] Rip Hamilton DO Primary Care Provider [phone] Rip Hamilton DO Primary Care Provider [phone] Encounter Details Date Type Department Care Team (Late st Contact Info) Description 09/07/2021 Procedure Pass [address] [address] Social History Tobacco Use Types Packs/Day Years Used Date Smoking Tobacco: Never Smokeless Tobacco: Never Alcohol Use Standard Drinks/Week Comments Yes 0 (1 standard drink = 0.6 oz pur e alcohol) rarely Comments No Sex and Gender Information Value Date Recorded Sex Assigned at Not on file Legal Sex Female 9:28 PM EDT Gender Identity Not on file Sexual Orientation Not on file 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 [address] [place] [address] documented as of this encounter Visit Diagnoses Not on filedocumented in this encounter Care Teams Biochemist Relationship Specialty Start Date End Date Rip Hamilton DO PCP - General 11/01/17 08/06/25 Rip Hamilton DO [address] [place] [address] [place] [address] PCP - General Internal Medicine 08/07/25 Rip Hamilton DO Historical LMR Provider 08/14/17 Aracely Galdamez NP [address] [place] [address] Historical LMR Provider 08/14/172 2 Adia Suggs NP [address] [place] [address] Historical LMR Provider 08/14/1711/05/2 2 Rochelle Martinez NP [address] [place] [address] Historical LMR Provider 08/14/1711/05/2 2 documented as of this encounter Additional Source Comments The information contained in this document represents components of the legal health record. It is not the complete legal health record.[facility]
--- OUTSIDE RECORDS SUMMARY | 2025-08-19 11:07 | XMS_ITS | Encounter Summary ---
Author Organization [facility] Address [address] [place] [address] Phone Care Team Providers Care Nursing Executive Name Role Phone Rip Hamilton DO Unavailable Bigda, Rip A DO Primary Care Provider [phone] Bigda, Rip A DO Primary Care Provider [phone] Encounter Details Date Type Department Care Team (Late st Contact Info) Description 07/13/2022 Procedure Pass [address] [address] Social History Tobacco Use Types Packs/Day Years Used Date Smoking Tobacco: Never Smokeless Tobacco: Never Alcohol Use Standard Drinks/Week Comments Yes 0 (1 standard drink = 0.6 oz pur e alcohol) weekly Comments No Sex and Gender Information Value Date Recorded Sex Assigned at Not on file Legal Sex Female 9:28 PM EDT Gender Identity Not on file Sexual Orientation Not on file 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 Not on file Not on file documented as of this encounter Plan of Treatment Upcoming Encounters Date Type Department Care Team (Late st Contact Info) Description 07/21/2025 Procedure Pass [address] [address] 03/19/2026 7:45 AM EDT Appointment [address] [address] Perlita Hernandez MD [address] [facility], [address] [place] [address] [email or web address] documented as of this encounter Visit Diagnoses Not on filedocumented in this encounter Care Teams Nursing Executive Relationship Specialty Start Date End Date Rip Hamilton DO [email or web address] PCP - General 11/01/17 08/06/25 Rip Hamilton DO [address] [place] [address] PCP - General Internal Medicine 08/07/25 Rip Hamilton DO [email or web address] Historical LMR Provider 08/14/17 documented as of this encounter Additional Source Comments The information contained in this document represents components of the legal health record. It is not the complete legal health record.[facility]
--- OUTSIDE RECORDS SUMMARY | 2025-08-19 11:07 | XMS_ITS | Encounter Summary ---
Author Organization [facility] Address [address] [place] [address] Phone Care Team Providers Care Pickle Maker Name Role Phone Rip Hamilton DO Unavailable Aracely Galdamez SOLAR ENERGY INSTALLATION MANAGER Unavailable Adia Suggs SOLAR ENERGY INSTALLATION MANAGER Unavailable [phone] Rochelle Martniez SOLAR ENERGY INSTALLATION MANAGER Unavailable [phone] Alfonso Rip Bonner DO Primary Care Provider [phone] Bigda, Rip Kailey DO Primary Care Provider [phone] Encounter Details Date Type Department Care Team (Late st Contact Info) Description 11/06/2018 Ancillary Orders Virtual Department [address] [place] [address] Fartun De Leon, REKHA 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 on file Not on file documented as of this encounter Plan of Treatment Upcoming Encounters Date Type Department Care Team (Late st Contact Info) Description 07/21/2025 Procedure Pass [address] [address] 03/19/2026 7:45 AM EDT Appointment [address] [address] Perlita Hernandez MD [address] [place] [address] [address] [place] [address] documented as of this encounter Visit Diagnoses Diagnosis Hip pain, right Pain in joint, pelvic region and thigh Low back pain, unspecified back pain laterality, unspecified chronicity, with sciatica presence unspecified documented in this encounter Care Teams Pickle Maker Relationship Specialty Start Date End Date Rip Hamilton DO PCP - General 11/01/17 08/06/25 Rip Hamilton DO [address] [place] [address] [place] [address] PCP - General Internal Medicine 08/07/25 Rip Hamilton DO Historical LMR Provider 08/14/17 Aracely Galdamez NP [address] [place] [address] Historical LMR Provider 08/14/17 2 Adia Suggs NP [address] [place] [address] Historical LMR Provider 08/14/17 2 Rochelle Martinez NP [address] [place] [address] Historical LMR Provider 08/14/17 2 documented as of this encounter Additional Source Comments The information contained in this document represents components of the legal health record. It is not the complete legal health record.[facility]
--- OUTSIDE RECORDS SUMMARY | 2025-08-19 11:07 | XMS_ITS | Continuity of Care Document ---
Author Organization [facility] Address [address] [facility] [place] [address] [place] [address] Assessment No assessment recorded. Plan of Treatment Reminders Order Date Submit Date Provider Last Modified By Organization Details Last Modified Time Details Appointments ANNUAL EXAM 2024 09:00A M ERNESTO KAUR Not available Not available Not available ANNUAL EXAM 2025 09:00A M ERNESTO KAUR Not available Not available Not available Lab ESR (erythroc yte sedimenta tion rate), blood 2024 [facility], [address] [place] [address], [id number], 08/19/2025 09:28:20 C-reactiv e protein, quantitat herminia, serum or plasma 2024 [facility], [address] [place] [address], [place], [address], 08/19/2025 09:28:20 hemoglobi n A1c, QN, blood 2024 [facility], [address] [place] [address], [place], [address], 08/19/2025 09:28:20 CMP, serum or plasma 2024 [facility], [address] [place] [address], [id number], 08/19/2025 09:28:20 CBC w/ auto diff 2024 [facility], [address] [facility], [place], [address], 08/19/2025 09:28:20 lipid panel, blood 2024 [facility], [address] [facility], [place], [address], 08/19/2025 09:28:20 TSH + free T4, serum 2024 [facility], [address] [facility], [place], [address], 08/19/2025 09:31:01 Referral None recorded. Procedures None recorded. Surgeries None recorded. Imaging None recorded. Medication Orders ondansetr on 8 mg disintegr ating tablet 2024 [place] [id number], [address] [place] [address], [id number], 08/19/2025 09:24:36 Patient TargetsNo targets recorded. Patient InstructionsNo instructions recorded. Reason for Referral None Reported. Problems Name Problem SNOMED Code Status Onset Date Resolution Date Notes Provider Name and Address Organization Details Recorded Time Irritable bowel syndrome 12471089 Active 2017 Not Available [facility] 0 12:34:10 Anxiety 48163949 Active 2017 Not Available [facility] 0 12:34:10 Impaired fasting glycemia 903257857 Active 2017 ERNESTO KAUR [address] [place], [address], [facility] 5 09:24:57 Mild recurrent major depression 12619907 Active 2017 Not Available [facility] 0 12:34:10 Gastroesop hageal reflux disease 296169388 Active 2017 Not Available [facility] 0 12:34:10 Fatigue 82685805 Active 2021 ERNESTO KAUR [address] [place], [address], [facility] 2 09:40:28 Loss of hair 680093185 Active 2021 ERNESTO KAUR [address] [place], [address], [facility] 2 09:40:50 Dry skin 00003679 Active 2021 ERNESTO KAUR [address] [place], [address], [facility] 2 09:40:55 Overweight 191145325 Active 2021 ERNESTO KAUR [address] [place] [address], [address], [facility] 2 09:52:26 Pain of multiple joints 74882644 Active 2021 ERNESTO KAUR [address] [place] [address], [address], [facility] 2 14:33:59 Menopausal flushing 954897943 Active 2021 ERNESTO KAUR [address] [place] [address], [address], [facility] 2 14:35:20 Foot pain 91031351 Active 2021 ERNESTO KAUR [address] [place] [address], [address], [facility] 2 14:37:34 Myalgia/my ositis - multiple 617234985 Active 2021 ERNESTO KAUR [address] [place] [address], [address], [facility] 2 12:58:38 Inguinal pain 209239745 Active 2022 ERNESTO KAUR [address] [place] [address], [address], [facility] 3 09:59:53 Colorectal cancer detected by DNA-based stool screening 719367481 Active 2023 ERNESTO KAUR [address] [place] [address], [address], [facility] 4 15:37:54 Depressive disorder 50056857 Active 2023 ERNESTO KAUR [address] [place] [address], [address], [facility] 4 09:51:24 B-cell lymphoma (clinical) 329144339 Active 2023 ERNESTO KAUR [address] [place] [address], [address], [facility] 4 11:06:18 Low back pain 541855540 Active 2023 ERNESTO KAUR [address] [place] [address], [address], [facility] 4 11:06:32 Streptococ bella sore throat 57066031 Active 2024 ERNESTO KAUR [address] [place] [address], [address], [facility] 5 15:00:51 Lumbar radiculopa thy 363938035 Active 2024 ERNESTO KAUR [address] [place] [address], [address], [facility] 5 16:39:26 Sore throat 069398361 Active 2024 ERNESTO KAUR [address] [place] [address], [address], [facility] 5 12:46:53 Acute urinary tract infection 077205822 Active 2024 ERNESTO KAUR [address] [place] [address], [address], [facility] 5 11:47:49 Nausea 751155472 Active 2024 ERNESTO KAUR [address] [place] [address], [address], [facility] 5 09:23:00 Chronic low back pain 748251045 Active 2024 ERNESTO KAUR [address] [facility], [place], [address], [facility] 5 09:25:48 Notes:Khalif ( Dr. Lauren Funez) Problem Notes None recorded. Procedures Surgical History Date Name Laterality Status Provider Name and Address Organization Details Recorded Time 5 Most Recent Mammogram completed Anca Jacobo [facility] 01/09/2025 08:30:34 8 completed Jia Lashell [facility] 09/13/2018 15:02:30 Imaging Results [...] Available Not Available Not Available Fluarix Quad 8034-7683 (PF) 60 mcg (15 mcg x 4)/0.5 mL IM syringe 02/25 completed Not Available Not Available Not Available Afluria Quad 4163-3182 (PF) 60 mcg (15 mcg x 4)/0.5 mL IM syringe 02/25 completed Not Available Not Available Not Available Fluarix Quad 0924-7975 (PF) 60 mcg (15 mcg x 4)/0.5 [...] Not Available Vitals Date Recorded Body height Body mass index (BMI) Body weight Heart rate Oxygen saturation Oxygen saturation in Arterial blood by Pulse oximetry Systolic And Diastolic Provider Name and Address Organization Details Last Updated DateTime 5 156.21 cm 46.5 kg/m2 377770. 09 g 80 /min 94 % 94 % 130/68 mm[Hg] Renetta Finch [facility] 09:04:42 Social History Question Answer Notes LastModified by Organizat ion Details LastModified Time Tobacco Smoking Status Never Smoker Jia dai [facility] 05/22/2018 11:39:41 What Was The Date Of Your Most Recent Tobacco Screening? 08/19/2025 [email or web address] Information not available 08/19/2025 Sex: Unknown Functional Status None recorded. Mental Status None recorded. Family History Nothing Reported. Medical History Condition Response Coronary Artery Disease N Gout N Other N Kidney Stones N Blood Diseases N Blood Transfusion N Breast Cancer N COPD N Depression N Lung Disease N Defects or Inherited Disease N Anxiety [...] split virus, quadrivalent, preservative 1 completed Ivy dai [facility] 07/24/2023 09:29:20 influenza, unspecified formulation 5 completed ERNESTO KAUR [address] [place] [address], [address] 08/19/2025 09:09:31 Influenza, split virus, quadrivalent, preservative 9 [facility] 07/24/2023 09:29:20 Influenza, split virus, quadrivalent, preservative 0 completed Ivy dai [facility] 07/24/2023 09:29:20 Tdap 0 [facility] 08/10/2020 11:46:46 COVID-19 vaccine, vector-nr, rS-ChAdOx1, PF, 0.5 mL 1 completed Ivy dai [facility] 07/24/2023 09:29:20 COVID-19 vaccine, vector-nr, rS-ChAdOx1, PF, 0.5 mL 1 completed Ivy dai [facility] 07/24/2023 09:29:20 Influenza, split virus, quadrivalent, preservative 8 completed Ivy Duval [facility] 07/24/2023 09:29:20 Past Encounters Encounter ID Performer Location Encounter Start Date Encounter Closed Date Diagnosis/Indication Diagnosis SNOMED-CT Code Diagnosis ICD10 Code Diagnosis IMO Codes Diagnosis Note [id number] Rip BonnerKellie Ramosgil [facility] [address],[place] [address] 08/19/2025 08:55:31 08/19/2025 09:33:04 Depression screening 810006062 Z13.31 SCREENING NEGATIVE General ex amination of patient 773015998 Z00.00 121808 BP recheck was 123/82 Nausea 368763231 R11.0 83580 will set up with anti nausea medication Impaired f asting glycemia 931180172 R73.01 413390 will recheck labs Chronic low back pain 27 3422934 M54.40 G89.29 00205578 will set up with recheck inflammato ry makers Thyroid di sorder screening 697174982 Z13.29 913515 Health Concerns Section Related Observation LastModified by Organization Detai ls LastModified Time None Recorded Concern Status LastModified by Organization Details LastModified Time None Recorded Payers Encounter Date Sequence Insurance Name Policy Number Policy Zeng Covered Member ID Zeng Member ID Guarantor Name 08/19/2025 1 AMY [id number] Emir Donis [id number] Emir Donis Notes Date Note Type Note Provider Name a nd Address Organization Details Recorded Time 5 text/html Annual WellnessReported by PatientSocial/Behavio ral HistoryFor diet and nutrition, patient reportshealthy diet,discussed vitamin and supplement use,discussed portion control,discussed maintaining calcium balance, anddiscussed diet improvement. For fracture risk, patient reportsno history of fractures,no recent explained fracture,no sudden unexplained fractures, andno previous musculoskeletal injuries. For physical activity, patient reportsexercises on a regular basis,recent increase in physical activity, andgood physical condition. For additional lifestyle factors, patient reportsno tobacco useanddrinks alcohol (mild-moderate).Menta l Status:For depression risk, patient reportsnever feels sad, [...] that the bleeding has resolved ERNESTO KAUR [address] [place] [address], [address], [facility] 08/19/2025 09:32:15 OBGyn Episode No OBEpisode recorded.
--- OUTSIDE RECORDS SUMMARY | 2025-08-19 11:07 | XMS_ITS | Clinical Summary ---
Author Organization [facility] Address [address] [place] [address] Phone Care Team Providers Care Hides Inspector Name Role Phone Jose Montejo DO Unavailable Jose Montejo DO Primary Care Provider [phone] Allergies No known active allergies Medications therapeutic multivitamin tablet Take 1 tablet by mouth daily. Active clonazePAM (KLONOPIN) 0.5 MG tablet Take 0.5 mg by mouth 2 (two) times a day as needed for anxiety. Active escitalopram oxalate (LEXAPRO) 10 MG tablet escitalopram 10 mg tablet TAKE 1 TABLET BY MOUTH EVERY DAY Active levonorgestrel and ethinyl estradiol (LOSEASONIQUE) 0.1-0.02 mg (84) 0.10 mg (7) oral 3MPk Take 1 tablet by mouth daily. 91 tablet 3 5 Active Active Problems Problem Noted Date Diagnosed Date Premenstrual syndrome 01/03/2022 Overview (01/03/2022): Hx mood lability and nausea before menses. Assessment & Plan (01/03/2022 11:21 AM EST): We reviewed history of mood lability and nausea before menses. Emir will try continuous ocps as previously d/w Dr. Mercer. Irregular menses 05/26/2020 Overview (07/13/2020): Perimenopause, normal labs Assessment & Plan (01/08/2023 9:32 AM EDT): Emir will continue with ocps given history of irregular menses/bleeding. She is aware of risks, which were reviewed. She prefers to stay on current pill but will continue to use cyclically as she did have BTB with extended use. She will call when needs refills. Assessment & Plan (01/03/2022 11:22 AM EST): We reviewed long hx of irregular menses and PMS as previously d/w Dr. Mercer. Emir never started continuous ocps as Dr. Mercer recommended and wants to do so now. Risks, usage reviewed. Will check in and have bp check in six months. Assessment & Plan (07/13/2020 2:52 PM EDT): Will try the continuous OCPs Assessment & Plan (05/26/2020 9:55 AM EDT): May be due to recent weight gain, or possibly is post menopausal / perimenopausal Recommend labs and RTO for endometrial bx and discussion of tests and making plan (at least would give P replacement Q 4-6 weeks LEEANNE positive 05/12/2020 Assessment & Plan (05/12/2020 8:54 PM EDT): I have reviewed with Emir that borderline positive LEEANNE without additional abnormalities of concern in her history, on physical examination or available labs does not make any diagnosis and in fact lays within possible lab error.. She understands that she may return on as needed basis should her symptoms progress or anytime she has questions or problems. Gastroesophageal reflux disease without esophagi tis 05/12/2020 Assessment & Plan (05/12/2020 8:56 PM EDT): To limit frequency of Pepcid that she has been taking for 15 years. Avoid late, large, spicy meals. Keep headboard elevated at 45 angle for nighttime. Chronic midline low back pain without sciatica 0 05/12/2020 Assessment & Plan (05/12/2020 8:57 PM EDT): Joint protection, energy conservation. Gentle, regular exercise routine. Avoid falls, injuries, overuse, bending, stooping, heavy lifting and sudden turns. Keep body weight in ideal range for her height. She may benefit from topical cream such as Arnica, Biofreeze, Aspercreme versus medicated patches such as salonpas, icy hot patch 2-3 times daily and if necessary at bedtime x 3 weeks. Warm pool exercise may be gentlest way to return to regular exercise routine. Weight gain 05/12/2020 Assessment & Plan (05/12/2020 8:55 PM EDT): She admits that weight gain of about 20 pounds is unintentional and promises to work on losing it back with mostly dietary modifications and gradual, regular exercise routine as tolerated. I suggested her to consider warm pool exercise program at [facility] in [place] Vitamin D insufficiency 05/12/2020 Assessment & Plan (05/12/2020 8:56 PM EDT): Serum level requested to make sure that she does not need additional supplementation. Resolved Problems Problem Noted Date Diagnosed Date Resolved Date Abnormal uterine bleeding 05/10/2022 Overview (07/18/2022): With h/o irregular cycles; on continuous OCP Risk factors for EIN Benign endometrial biopsy and normal sonohysterogram Assessment & Plan (07/18/2022 1:35 PM EDT): Bleeding pattern is better taking the Seasonique 3 weeks on and 1 week off. She like to continue with this brand rather than switching to pill that comes packaged for weeks at a time No focal finding on sonohysterogram, endometrial biopsies better Assessment & Plan (05/10/2022 1:30 PM EDT): The pipelle today may not have sampled the endometrial cavity well- SHG ordered Advised taking 7 days off from the OCP then resuming, may have had some build- up of lining prior to OCP start and a week off may allow for this to slough off PAN I (cervical intraepithelial neoplasia I) 8 01/08/2023 Assessment & Plan (03/14/2018 8:11 AM EDT): PAN I 1999 Encounters Date Type Department Care Team Description 08/07/2025 5:00 PM EDT Office Visit [facility] [address] [address] Juliet Nair, Nelly Bean, [place] Acute upper respiratory infection (Primary Dx); Cough 07/21/2025 8:00 AM EDT Office Visit [facility] [address] [place] [address] Perlita Hernandez MD Encounter for gynecological examination without abnormal finding (Primary Dx) from Last 3 Months Immunizations Immunization Administration Dates Next Due COVID-19 (Pre-08/20) AstraZe neca Vaccine, rS-ChAdOx1, PF 02/06/2021,01/14/2021 INFLUENZA, SPLIT VIRUS, TRIVALENT PF 08/14/2024, 08/12/2016 INFLUENZA, SPLIT VIRUS, TRIV ALENT W/ PRESERVATIVE IM 06/28/2021,08/07/2010 Influenza Quadrivalent MDCK Preservative Free IM 08/23/2022 Influenza Quadrivalent Prese rvative Free IM 06/17/2020,07/29/2019,07/07/2018,2016,07/17/2015 Influenza Quadrivalent w/ Preservative IM 06/28/2021,06/17/2020,07/29/2019,2017 Influenza Recombinant Trival ent Preservative Free IM 07/03/2025 Tdap 08/14/2024,10/29/2009 Family History Medical History Relation Comments Hypertension Father Cancer Maternal Grandfather Breast cancer Neg Hx Relation Status Comments Brother 1 Alive Brother 2 Alive Father Alive Maternal Grandfather Mother Alive Social History Tobacco Use Types Packs/Day Years Used Date Smoking Tobacco: Never Smokeless Tobacco: Never Tobacco Cessation:Counseling Given: Not Answered Alcohol Use Standard Drinks/Week Comments Yes 0 (1 standard drink = 0.6 oz pur e alcohol) socially Education Answer Date Recorded Are you interested in more education? Not on manjinder e 02/23/2023 Are you concerned about learning? Not on file 02/23/2023 No 02/23/2023 No 02/23/2023 Digital Access Answer Date Recorded No 03/23/2023 No 03/23/2023 Reliable internet access at home? Not on file 03/23/2023 Device with a working camera? Not on file Intimate Partner Violence Answer Date R ecorded Are you denied basic needs s uch as food, clothing, or medical care? No 03/13/2024 In the past 12 months have y ou been in a relationship with a person who hurts, threatens, or tries to control you? No 03/13/2024 Are you denied basic needs s uch as food, clothing, or medical care? No 03/13/2024 In the past 12 months have y ou been in a relationship with a person who hurts, threatens, or tries to control you? 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 Not on file Not on file Last Filed Vital Signs Vital Sign Reading Time Taken Comments Blood Pressure 160/100 08/07/2025 5:14 PM EDT Pulse 108 08/07/2025 5:14 PM EDT Temperature 36.7 C (98.1 F) 08/07/2025 5:14 PM EDT Respiratory Rate 18 08/07/2025 5:14 PM EDT Oxygen Saturation 98% 08/07/2025 5:14 PM EDT Inhaled Oxygen Concentration - - Weight 117.7 kg (259 lb 6.4 oz) 07/21/2025 8:01 AM EDT Height 154.9 cm (5' 0.98 ) 07/21/2025 8:01 AM ED T Body Mass Index 49.04 07/21/2025 8:01 AM EDT Plan of Treatment Upcoming Encounters Date Type Department Care Team (Late st Contact Info) Description 07/21/2025 Procedure Pass [address] [address] 03/19/2026 7:45 AM EDT Appointment [address] [address] Perlita Hernandez MD [address] [place] [address], [address] [place] [address] [email or web address] Health Maintenance Due Date Last Done Comments LIPID PANEL 1975 DEPRESSION SCREENING 1987 HEPATITIS C SCREENING 1993 HIV ONE-TIME SCREENING (18-65 YEARS) 1993 COLOGUARD 2020 FIT TEST 2020 FOBT 2020 SIGMOIDOSCOPY 2020 VIRTUAL COLONOSCOPY 2020 SCREENING FOR DIABETES 05/05/2024 05/05/2021 COVID-19 VACCINE (2024- season) 2025 10/13/2021, 02/06/2021, 02/06/2021, Additional history exists PNEUMOCOCCAL VACCINES (50+ years) (1 of 1 - PCV) 2025 RSV VACCINE (1 - Risk 50-74 years 1-dose series) 2025 ZOSTER VACCINES (1 of 2) 2025 MAMMOGRAM 01/07/2027 01/07/2025, 09/28, 10/13/2022, Additional history exists PAP SMEAR 01/09/2028 01/08/2023, 02/26, 03/14/2018 COLONOSCOPY 03/13/2034 03/13/2024 COLORECTAL CANCER SCREENING 03/13/2034 Adult Td,Tdap Booster 08/14/2034 08/14/2024, 010 INFLUENZA VACCINE Completed 07/03/2025, , 08/23/2022, Additional history exists SMOKING STATUS SCREENING (Once After 26 Yrs) Completed 08/07/2025 HEPATITIS A VACCINES Aged Out No long er eligible based on patient's age to complete this topic HIB VACCINES Aged Out No longer eligi ble based on patient's age to complete this topic MENINGOCOCCAL VACCINES (ACWY) Aged Out No longer eligible based on patient's age to complete this topic MENINGOCOCCAL VACCINES (B) Aged Out N o longer eligible based on patient's age to complete this topic Medical Devices Not on file Procedures Procedure Name Priority Date/Time Associated Diagnosis Comments POCT COVID-19 RT-PCR/INFLUENZA A & B/RSV CEPHEID Routine 08/07/2025 5:45 PM EDT Cough POCT RAPID STREP A Routine 08/07/2025 5: 17 PM EDT Cough BI MAMMOGRAM SCREENING WITH TOMOSYNTHESIS WITH CAD (BILATERAL) Routine 01/07/2025 7:53 AM EDT Visit for screening mammogram ENDOSCOPY, COLON 03/13/2024 11:3 2 AM EDT PAP TEST Routine 01/08/2023 12:00 AM EDT from Last 3 Months or Most Recently Relevant to Health Maintenance Results * POCT COVID-19 RT-PCR/Influenza A & B/RSV (Cepheid) (08/07/2025 5:45 PM EDT) [facility] RSV PCR Negative Negative [facility] SARS-CoV-2 (COVID-19) Negative Negative [facility] Influenza A PCR Negative Negative [facility] Influenza B PCR Negative Negative [facility] 08/07/2025 5:45 PM EDT 08/07/2025 6:25 PM EDT Nelly Nair [facility] POINT OF CARE TEST AMANDA YOUNG Final Result [facility] [address] [address], [place] [phone] * POCT Rapid Strep A (08/07/2025 5:17 PM EDT) [facility] Strep A, PCR Not Detected Not Detected C HilarioOLEMitchell [facility] 08/07/2025 5:17 PM EDT 08/07/2025 5:45 PM EDT us Nelly Clarke Korey SENIOR PROCUREMENT SPECIALIST POINT OF CARE TEST AMANDA YOUNG Final Result [facility] [address] [address], [place] [phone] * BI MAMMOGRAM SCREENING WITH TOMOSYNTHESIS WITH CAD (BILATERAL) (01/07/2025 7:53 AM EDT) Anatomical Region Laterality Modality Breast Left, Breast Right, Breast Bilateral Bila teral Mammography 01/07/2025 5:06 PM EDT Impressions 01/07/2025 5:12 PM EDT No mammographic evidence of malignancy in either breast. Annual screening mammography is recommended. BI-RADS 1 NEGATIVE The patient will be notified of the results and recommendations. Narrative 01/07/2025 5:12 PM EDT BI MAMMOGRAM SCREENING WITH TOMOSYNTHESIS WITH CAD (BILATERAL) Additional patient information: Screening. COMPARISON: Comparison is made with relevant prior imaging. Breast composition: The breast tissue is almost entirely fatty. FINDINGS: No abnormal masses, suspicious calcifications, or other significant findings are identified mammographically in either breast. Procedure Note Kulwant Brewer MD - 01/07/2025 BI MAMMOGRAM SCREENING WITH TOMOSYNTHESIS WITH CAD (BILATERAL) Additional patient information: Screening. COMPARISON: Comparison is made with relevant prior imaging. Breast composition: The breast tissue is almost entirely fatty. FINDINGS: No abnormal masses, suspicious calcifications, or other significantfindings are identified mammographically in either breast. IMPRESSION: No mammographic evidence of malignancy in either breast. Annual screening mammography is recommended. BI-RADS 1 NEGATIVE The patient will be notified of the results and recommendations. us Jose A Bigda DO IMG MG EXAMS Final Result * ENDOSCOPY, COLON (03/13/2024 11:32 AM EDT) Narrative Transcriptions Errol Galeas MD - 03/13/2024 11:32 AM EDT [facility] Patient Name: Emir Randall Attending MD:: ERROL GALEAS MD, Procedure Date: 03/13/2024 11:32 AM Date of : 1975 Age: 48 Admit Type: Outpatient Gender: Female Room: [facility] Referring MD: JOSE MONTEJO DO Exam Type: Colonoscopy Indications: This is the patient's first colonoscopy, Positive Cologuard test Medications: Monitored Anesthesia Care Procedure: Informed consent was obtained from the patientafter discussion of the indications, limitations, alternatives, benefits, and risks of the procedure. Risks specifically discussed include but are not limited to medication reactions, missed lesions, bleeding, perforation, or the need for emergent surgery. Throughout the procedure, the patient's blood pressure, pulse, end-tidal CO2, and oxygensaturations were monitored continuously. The Olympus adult variable colonoscope [id number] #1 was introduced through the anus and advanced to the cecum, identified by the appendiceal orifice, ileocecal valve and palpation. The colonoscopy was performed without difficulty. The patient tolerated the procedure well. The quality of the bowel preparation was good. The ileocecal valve,appendiceal orifice, and rectum were photographed. Complications: No immediate complications. Estimated blood loss:None. Findings: The perianal and digital rectal examinations were normal. Pertinent negatives include normalsphincter tone. Retroflexion in the right colon was performed. A few small-mouthed diverticula were found in the sigmoid colon. Non-bleeding internal hemorrhoids were found during retroflexion. The hemorrhoids were moderate. The exam was otherwise without abnormality ondirect and retroflexion views. Impression: - Diverticulosis in the sigmoid colon. - Non-bleeding internal hemorrhoids. - The examination was otherwise normal on directand retroflexion views. - No specimens collected. Recommendation: - Reassurance - Repeat colonoscopy in 10 years for screening purposes. ERROL GALEAS MD 03/13/2024 11:57:14 AM This report has been signed electronically. Number of Addenda: 0 Note Initiated On: 03/13/2024 11:32 AM Procedure Code(s): --- Professional --- 75037, Colonoscopy, flexible; diagnostic, including collection of specimen(s) by brushing or washing, when performed (separateprocedure) --- Technical --- 64633, Colonoscopy, flexible; diagnostic, including collection of specimen(s) by brushing or washing, when performed (separateprocedure) Diagnosis Code(s): --- Professional --- K64.8, Other hemorrhoids R19.5, Other fecal abnormalities K57.30, Diverticulosis of large intestine without perforation or abscess without bleeding --- Technical --- K64.8, Other hemorrhoids R19.5, Other fecal abnormalities K57.30, Diverticulosis of large intestine without perforation or abscess without bleeding CPT copyright 2021 [employer]. All rights reserved. The codes documented in this report are preliminary and upon hot air furnace installer and repairer reviewmay be revised to meet current compliance requirements. Procedure Date: 03/13/2024 11:32:[address] [place] [address] us Jose A Bigda DO GI PROCEDURE ORDERABLES Final Re sult * Pap Test (01/08/2023 12:00 AM EDT) 01/08/2023 01/09/2023 9:4 6 AM EDT Narrative SEE NARRATIVE - 01/15/2023 11:31 AM EDT [address] [address] Diesel Machinist: Jesenia Bahena MD MOTOR AND GENERATOR ASSEMBLER Cytology Report FINAL DIAGNOSIS A. PAP SMEAR (SUREPATH) CE: SPECIMEN ADEQUACY: Satisfactory for evaluation; transformation zone present. INTERPRETATION: NEGATIVE FOR INTRAEPITHELIAL LESION OR MALIGNANCY. Electronically Signed Out By: CHANI Cardoza(ASCP) The Pap test is a screening test primarily for squamous cancers and precursors and has associated false-negative and false-positive results. New technologies such as liquid-based preparations may decrease but will not eliminate all false-negative results. Regular sampling and follow-up of unexplained clinical signs and symptoms are recommended to minimize false negative results. PROCEDURES/ADDENDA HPV Testing (Requested) Ordered Date: 01/09/2023 A. PAP SMEAR (SUREPATH) CE: Human Papilloma Virus Test NEGATIVE for high-risk Human Papilloma Virus types 16, 18, 45 and the Other high risk probe set (Includes 31, 33, 35, 39, 51, 52, 56, 58, 59, 66, 68) Note: Testing performed by [employer] HR-HPV analysis. Clinical correlation is advised. This HPV test was performed at [facility], [address] [place] [address]. This test has been FDA approved for SurePath cervical cytology specimens. The accuracy and precision of this test for all other specimen sources has been verified in the Cytopathology Laboratory of the [facility] and has not been cleared or approved by the U.S. Food and Drug Administration. Clinical correlation is advised. CLINICAL HISTORY Date of Last Menstrual Period: 12-29-2022 Other Clinical Conditions: Screening Pap SPECIMEN SOURCE A: PAP SMEAR (SUREPATH) CE Patient Name: EMIR RANDALL : 1975 (Age: 47) Sex: F Institution: [facility] Location: [facility] Date of Collection: 01/08/2023 Date of Reported: 01/15/2023 11:31 Results to: Ne Murcia MSN, BS Ne Murcia ESTIMATOR PRINTING PLATE MAKING CYTOLOGY ORDERABLES Final Resu lt SEE NARRATIVE from Last 3 Months or Most Recently Relevant to Health Maintenance Insurance CIGNA PPO CIGNA PPO CIGNA PPO CIGNA PPO CIGNA PPO CIGNA PPO CIGNA PPO CIGNA PPO CIGNA PPO Care Teams Hides Inspector Relationship Specialty Start Date End Date Jose Montejo DO [address] [place] [id number] PCP - General Internal Medicine 08/07/25 Jose Montejo DO [email or web address] Historical LMR Provider 08/14/17 Additional Source Comments The information contained in this document represents components of the legal health record. It is not the complete legal health record.[facility] Rachid
--- OUTSIDE RECORDS SUMMARY | 2025-08-19 11:07 | XMS_ITS | Encounter Summary ---
Author Organization [facility] Address [address] [place] [address] [place] [phone] Phone Care Team Providers Care Correspondence Renew Clerk Name Role Phone Alfonso Rip Kailey DO Unavailable Aracely Galdamez COAT FELLER Unavailable [phone] Adia Suggs COAT FELLER Unavailable Rochelle Martinez COAT FELLER Unavailable Rip Hamilton Kailey Primary Care Provider [phone] Rip Hamilton Kailey DO Primary Care Provider [phone] Encounter Details Date Type Department Care Team (Late Contact Info) Description 08/10/2020 Ancillary Orders Virtual Department [address] [place] [address] Rip Hamilton DO [address] [facility] [place] [address] [place] [address] Breast screening Social History Tobacco Use Types Packs/Day Years [...] 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 Not on file Not on file documented as of this encounter Plan of Treatment Upcoming Encounters Date Type Department Care Team (Late Contact Info) Description 07/21/2025 Procedure Pass [address] [address] 03/19/2026 7:45 AM EDT Appointment [address] [address] Perlita Hernandez MD [address] [facility], [address] [place] [address] [email or web address] documented as of this encounter Results * BI MAMMOGRAM SCREENING WITH TOMOSYNTHESIS WITH CAD (BILATERAL) (10/08/2020 8:22 AM EST) Anatomical Region Laterality Modality Breast Left, Breast Right, Breast Bilateral Bila teral Mammography 10/08/2020 1:15 PM EST Impressions 10/08/2020 1:19 PM EST BILATERAL BREASTS: Negative, no evidence of malignancy. Normal interval follow- up is recommended in 12 months. Bi-RADS: BI-RADS CATEGORY: 1 - Negative. DENSITY: There are scattered fibroglandular densities. Narrative 10/08/2020 1:19 PM EST STUDY: Bilateral screening mammography with tomosynthesis and CAD TECHNIQUE: Bilateral full-field digital screening mammography is obtained and read in conjunction with computer-aided detection. Tomosynthesis as well as 2-D C view imaging were obtained. COMPARISON: Comparison made to multiple prior, most recent August 01, 2018, and most remote November 05, 2015. BREAST COMPOSITION: There are scattered areas of fibroglandular density BILATERAL BREASTS: No significant masses, suspicious calcifications or other abnormalities are seen. Procedure Note Sandra Paula MD - 10/08/2020 STUDY: Bilateral screening mammography with tomosynthesis and CAD TECHNIQUE: Bilateral full-field digital screening mammography is obtainedand read in conjunction with computer-aided detection. Tomosynthesis aswell as 2-D C view imaging were obtained. COMPARISON: Comparison made to multiple prior, most recent July, and most remote November 05, 2015. BREAST COMPOSITION: There are scattered areas of fibroglandulardensity BILATERAL BREASTS: No significant masses, suspicious calcifications orother abnormalities are seen. IMPRESSION: BILATERAL BREASTS: Negative, no evidence of malignancy. Normal intervalfollow-up is recommended in 12 months. Bi-RADS: BI-RADS CATEGORY: 1 - Negative. DENSITY: There are scattered fibroglandular densities. us Rip Hamilton DO IMG MG EXAMS Final Result documented in this encounter Visit Diagnoses Diagnosis Breast screening Breast screening, unspecified Breast screening Breast screening, unspecified documented in this encounter Care Teams Correspondence Renew Clerk Relationship Specialty Start Date End Date Rip Hamilton DO PCP - General 11/01/17 08/06/25 Rip Hamilton DO [address] [place] [address] PCP - General Internal Medicine 08/07/25 Rip Hamilton DO Historical LMR Provider 08/14/17 Aracely Galdamez NP [address] [place] [address] Historical LMR Provider 08/14/17 2 Adia Suggs NP [address] [place] [address] Historical LMR Provider 08/14/17 2 Rochelle Martinez NP [address] [place] [address] Historical LMR Provider 08/14/17 2 documented as of this encounter Additional Source Comments The information contained in this document represents components of the legal health record. It is not the complete legal health record.[facility]
--- OUTSIDE RECORDS SUMMARY | 2025-08-19 11:08 | XMS_ITS | Encounter Summary ---
Author Organization [facility] Address [address] [place] [address] [place] [address] Phone Care Team Providers Care Tracer Lathe Set Up Operator Name Role Phone Alfonso Rip Kailey DO Unavailable Aracely Galdamez PRODUCTION PLANNER Unavailable [phone] Adia Suggs PRODUCTION PLANNER Unavailable Rochelle Martinez PRODUCTION PLANNER Unavailable [phone] Rip Hamilton Kailey Primary Care Provider [phone] Rip Hamilton Kailey DO Primary Care Provider [phone] Encounter Details Date Type Department Care Team (Late Contact Info) Description 07/05/2018 Ancillary Orders Virtual Department [address] [place] [address] Rip Hamilton DO [address] [facility] [place] [address] [place] [address] [email or web address] Breast screening Social History Tobacco Use Types [...] 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 file Not on file documented as of this encounter Plan of Treatment Upcoming Encounters Date Type Department Care Team (Late Contact Info) Description 07/21/2025 Procedure Pass [address] [address] 03/19/2026 7:45 AM EDT Appointment [address] [address] Perlita Hernandez MD [address] [facility], [address] [place] [address] [email or web address] documented as of this encounter Results * BI MAMMOGRAM SCREENING WITH TOMOSYNTHESIS WITH CAD (BILATERAL) (08/01/2018 12:58 PM EDT) Anatomical Region Laterality Modality Breast Left, Breast Right, Breast Bilateral Bila teral Mammography 08/01/2018 1:23 PM EDT Impressions 08/01/2018 1:25 PM EDT Stable appearance relative to prior imaging. No findings suggestive of malignancy are seen. BI-RADS CATEGORY: 1 - Negative. DENSITY: There are scattered fibroglandular densities. POS - [id number] Narrative 08/01/2018 1:25 PM EDT Full-field digital mammography is obtained with computer-aided detection. Comparison with prior imaging from 02/02/2017 is made with older imaging dating back as far as 11/05/2015 also reviewed. There is scattered fibroglandular density evident in the breasts. In addition to 2-D C view imaging, tomosynthesis images are obtained in two projections of each breast. No dominant soft tissue mass of concern, suspicious cluster of calcifications, significant interval skin changes, or architectural distortion is identified. Procedure Note Gabriel Sears MD - 08/01/2018 Full-field digital mammography is obtained with computer-aided detection.Comparison with prior imaging from 02/02/2017 is made with older imagingdating back as far as 11/05/2015 also reviewed. There is scattered fibroglandular density evident in the breasts. Inaddition to 2-D C view imaging, tomosynthesis images are obtained in twoprojections of each breast. No dominant soft tissue mass of concern, suspicious cluster ofcalcifications, significant interval skin changes, or architecturaldistortion is identified. IMPRESSION: Stable appearance relative to prior imaging. No findings suggestive ofmalignancy are seen. BI-RADS CATEGORY: 1 - Negative. DENSITY: There are scattered fibroglandular densities. POS - [id number] us Rip Hamilton DO IMG MG EXAMS Final Result documented in this encounter Visit Diagnoses Diagnosis Breast screening Breast screening, unspecified Breast screening Breast screening, unspecified documented in this encounter Care Teams Tracer Lathe Set Up Operator Relationship Specialty Start Date End Date Rip Hamilton DO PCP - General 11/01/17 08/06/25 Rip Hamilton DO [address] [place] [address] PCP - General Internal Medicine 08/07/25 Rip Hamilton DO Historical LMR Provider 08/14/17 Aracely Galdamez NP [address] [place] [address] Historical LMR Provider 08/14/17 2 Adia Suggs NP [address] [place] [address] Historical LMR Provider 08/14/17 2 Rochelle Martinez NP [address] [place] [address] Historical LMR Provider 10/17/17 1/8/2 2 documented as of this encounter Additional Source Comments The information contained in this document represents components of the legal health record. It is not the complete legal health record.[facility]
--- OUTSIDE RECORDS SUMMARY | 2025-08-19 11:08 | XMS_ITS | Encounter Summary ---
Author Organization [facility] Address [address] [place] [address] Phone Care Team Providers Care Wheel Alignment Technician Name Role Phone Rip Hamilton DO Unavailable Aracely Galdamez DRIVE IN TELLER Unavailable [phone] IN TELLER Unavailable Rochelle Martinez DRIVE IN TELLER Unavailable [phone] Rip Hamilton Kailey DO Primary Care Provider [phone] Bigda, Rip Bonner DO Primary Care Provider Encounter Details Date Type Department Care Team (Late Contact Info) Description 10/15/2018 Ancillary Orders Virtual Department 30 [place] [address] Fartun De Leon PA-C 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 on file Not on file documented as of this encounter Plan of Treatment Upcoming Encounters Date Type Department Care Team (Late st Contact Info) Description 07/21/2025 Procedure Pass [address] [address] 03/19/2026 7:45 AM EDT Appointment [address] [address] Perlita Hernandez MD [address] [place] [address], [address] [place] [address] [email or web address] documented as of this encounter Results * XR HIP 2-3 VW RIGHT (10/21/2018 12:53 PM EST) Anatomical Region Laterality Modality Hip Right Radiographic Mariel ging 10/21/2018 12:5 9 PM EST Impressions 10/21/2018 2:01 PM EST No acute bony abnormality or degenerative changes. POS - [id number] Edited by: Mela Valle on 10/21/2018 1:12 PM Narrative 10/21/2018 2:01 PM EST HISTORY: Right hip pain. Possible sciatica. No trauma. COMPARISON: None. FINDINGS: AP and frog-lateral views of the right hip are performed. No evidence of an acute fracture or dislocation. Slight uncovering of the femoral head is a finding seen with prior hip dysplasia. Hip joint space is preserved without significant periarticular spurring. Femoral head has a normal rounded contour. No destructive bone lesion. Procedure Note Roger Flores MD - 10/21/2018 HISTORY: Right hip pain. Possible sciatica. No trauma. COMPARISON: None. FINDINGS: AP and frog-lateral views of the right hip are performed. No evidence of an acute fracture or dislocation. Slight uncovering of thefemoral head is a finding seen with prior hip dysplasia. Hip joint spaceis preserved without significant periarticular spurring. Femoral head hasa normal rounded contour. No destructive bone lesion. IMPRESSION: No acute bony abnormality or degenerative changes. POS - [id number] Edited by: Mela Valle on 10/21/2018 1:12 PM January Haley DA SILVA IMG XR PELVIS Final Result documented in this encounter Visit Diagnoses Diagnosis Right hip pain Pain in joint, pelvic region and thigh Right hip pain Pain in joint, pelvic region and thigh documented in this encounter Care Teams Wheel Alignment Technician Relationship Specialty Start Date End Date Rip Hamilton DO PCP - General 11/01/17 08/06/25 Rip Hamilton DO [address] [place] [address] PCP - General Internal Medicine 08/07/25 Rip Hamilton DO Historical LMR Provider 08/14/17 Aracely Galdamez, MONICA [address] [place] [address] Historical LMR Provider 08/14/172 2 Adia Suggs NP [address] [place] [address] Historical LMR Provider 08/14/17 2 Rochelle Martinez NP [address] [place] [address] Historical LMR Provider 08/14/17 2 documented as of this encounter Additional Source Comments The information contained in this document represents components of the legal health record. It is not the complete legal health record.[facility]
--- OUTSIDE RECORDS SUMMARY | 2025-08-19 11:09 | XMS_ITS | Encounter Summary ---
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 file Not on file documented as of this encounter Plan of Treatment Upcoming Encounters Date Type Department Care Team (Late st Contact Info) Description 07/21/2025 Procedure Pass [address] [address] 03/19/2026 7:45 AM EDT Appointment [address] [address] Perlita Hernandez MD [address] [place] [address] documented as of this encounter Visit Diagnoses Not on filedocumented in this encounter Care Teams Mold Shaker Relationship Specialty Start Date End Date Rip Hamilton DO [email or web address] PCP - General 11/01/17 08/06/25 Rip Hamilton DO [address] [place] [address] PCP - General Internal Medicine 08/07/25 Rip Hamilton DO [email or web address] Historical LMR Provider 08/14/17 documented as of this encounter Additional Source Comments The information contained in this document represents components of the legal health record. It is not the complete legal health record.[facility]
--- OUTSIDE RECORDS SUMMARY | 2025-08-19 11:09 | XMS_ITS | Encounter Summary ---
Author Organization [facility] Address [address] [place] [address] Phone Care Team Providers Care Addictions Therapist Name Role Phone Rachlegil Rip Kailey DO Unavailable Aracely Galdamez CAMERA MAKER Unavailable [phone] Adia Suggs CAMERA MAKER Unavailable [phone] Rochelle Martinez CAMERA MAKER Unavailable [phone] Rip Hamilton DO Primary Care Provider [phone] Rip Hamilton DO Primary Care Provider [phone] Encounter Details Date Type Department Care Team (Late st Contact Info) Description 08/10/2020 Procedure Pass [address] [address] Social History Tobacco Use Types Packs/Day Years [...] 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 file Not on file documented as of this encounter Plan of Treatment Upcoming Encounters Date Type Department Care Team (Late st Contact Info) Description 07/21/2025 Procedure Pass [address] [address] 03/19/2026 7:45 AM EDT Appointment [facility] [address] [place] [address] Perlita Hernandez MD [address] [facility] [address] [place] [address] documented as of this encounter Visit Diagnoses Not on filedocumented in this encounter Care Teams Addictions Therapist Relationship Specialty Start Date End Date Rip Hamilton DO PCP - General 11/01/17 08/06/25 Rip Hamilton DO [address] [place] [address] [place] [address] PCP - General Internal Medicine 08/07/25 Rip Hamilton DO Historical LMR Provider 08/14/17 Aracely Galdamez NP [address] [place] [address] Historical LMR Provider 08/14/172 2 Adia Suggs NP [address] [place] [address] Historical LMR Provider 08/14/1711/05/2 2 Rochelle Martinez NP [address] [place] [address] Historical LMR Provider 08/14/1711/05/2 2 documented as of this encounter Additional Source Comments The information contained in this document represents components of the legal health record. It is not the complete legal health record.[facility]
--- OUTSIDE RECORDS SUMMARY | 2025-08-19 11:09 | XMS_ITS | Encounter Summary ---
Author Organization [facility] Address [address] [place] [address] [place] [address] Phone Care Team Providers Care Supervisor Press Room Name Role Phone Rip Hamilton DO Unavailable Bigda, Rip A DO Primary Care Provider [phone] Bigda, Rip A DO Primary Care Provider [phone] Encounter Details Date Type Department Care Team (Late st Contact Info) Description 07/29/2024 Procedure Pass [facility], [facility] [address] [place] [address] Social History Tobacco Use Types Packs/Day Years [...] 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 Not on file documented as of this encounter Plan of Treatment Upcoming Encounters Date Type Department Care Team (Late st Contact Info) Description 07/21/2025 Procedure Pass [address] [address] 03/19/2026 7:45 AM EDT Appointment [address] [address] Perlita Hernandez MD [address] [place] [address] documented as of this encounter Visit Diagnoses Not on filedocumented in this encounter Care Teams Supervisor Press Room Relationship Specialty Start Date End Date Rip Hamilton DO [email or web address] PCP - General 11/01/17 08/06/25 Rip Hamilton DO [address] [place] [address] [place] [address] PCP - General Internal Medicine 08/07/25 Rip Hamilton DO [email or web address] Historical LMR Provider 08/14/17 documented as of this encounter Additional Source Comments The information contained in this document represents components of the legal health record. It is not the complete legal health record.[facility]
--- OUTSIDE RECORDS SUMMARY | 2025-08-19 11:09 | XMS_ITS | Encounter Summary ---
Author Organization [facility] Address [address] [place] [address] [place] [address] Phone Care Team Providers Care Hot Mill Worker Name Role Phone Rip Hamilton DO Unavailable Aracely Galdamez CLINIC ASSISTANT Unavailable [phone] Adia Suggs CLINIC ASSISTANT Unavailable [phone] Rochelle Martinez CLINIC ASSISTANT Unavailable [phone] Rip Hamilton Kailey DO Primary Care Provider [phone] BigdaRip A DO Primary Care Provider [phone] Encounter Details Date Type Department Care Team (Latest Contact Info) Description 08/10/2020 Transcribe Orders Virtual Department [address] [place] [address] Daniella Gutierrez PA [address] [facility] [place] [address] Acute low back pain, unspecified back pain laterality, unspecified whether sciatica present (Primary Dx) Social History Tobacco Use Types Packs/Day Years [...] 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 documented as of this encounter Visit Diagnoses Diagnosis Acute low back pain, unspecified back pain laterality, unspecified whether sciatica present- Primary documented in this encounter Care Teams Hot Mill Worker Relationship Specialty Start Date End Date Rip Hamilton DO PCP - General 11/01/17 08/06/25 Rip Hamilton DO [address] [place] [address] [place] [address] PCP - General Internal Medicine 08/07/25 Rip Hamilton DO Historical LMR Provider 08/14/17 Aracley Galdamez NP [address] [place] [address] Historical LMR Provider 08/14/17 2 Adia Suggs NP [address] [place] [address] Historical LMR Provider 08/14/17 2 Rochelle Martinez NP [address] [place] [address] Historical LMR Provider 08/14/17 2 documented as of this encounter Additional Source Comments The information contained in this document represents components of the legal health record. It is not the complete legal health record.[facility]
[2025-08-19 13:00] LABS: MANUAL DIFF FLAG NO
[2025-08-19 13:13] LABS: Hematocrit 39.5 % (37.0-47.0); Hemoglobin 12.5 g/dl (12.0-16.0); Imm Gran Abs Auto 0.03 X10*3/uL (0.00-0.03); Imm Gran Pct Auto 0.3 % (0.0-0.4); Lymphocytes Absolute Auto 2.6 X10*3/uL (1.2-4.9); Mean Corpuscular HGB Conc 31.6 g/dl (31.0-35.0); Mean Corpuscular Hemoglobin 27.2 pg (27.0-33.0); Mean Corpuscular Volume 86.1 fL (80.0-98.0); NRBC Abs Auto 0.000 X10*3/uL (0.0-0.012); NRBC Pct Auto 0.0 /100WBC (0.0-0.2); Platelet Count 378 X10*3/uL (160-400); Red Blood Count 4.59 X10*6/uL (4.20-5.50); White Blood Count 10.3 X10*3/uL (4.8-10.8)
[2025-08-19 13:24] LABS: Hemoglobin A1C 138.6484 umol/L; Total Hemoglobin (HGBA1C) 3235.2533 umol/L
[2025-08-19 14:00] LABS: Alanine Aminotransferase 12 U/L (0-31); Albumin Level 4.3 g/dL (3.5-5.0); Alkaline Phosphatase 89 U/L (39-117); Anion Gap 10 (12-20); Aspartate Amino Transferase 18 U/L (5-31); Blood Urea Nitrogen 13 mg/dL (9-16); Calcium 9.8 mg/dL (8.4-10.2); Carbon Dioxide 29 mmol/L (22-29); Chloride 106 mmol/L (96-108); Cholesterol 211 mg/dL (<200); Estimated Glomerular Filt Rate > 60; HDL Cholesterol 43 mg/dL (>40); Potassium 4.6 mmol/L (3.3-5.1); Sodium 140 mmol/L (135-145); Total Protein 7.7 g/dL (6.5-8.0); Triglycerides 137 mg/dL (<150)
== END 2025-08-19 09:37 | disposition home or self-care (01) ==
LOC: HO.MANLDS 09:36
PROVIDERS: Visit Provider Physician Assistant
DX: Z00.00 Encounter for general adult medical examination without abnormal findings (principal); Z13.6 Encounter for screening for cardiovascular disorders; Z13.29 Encounter for screening for other suspected endocrine disorder; R73.01 Impaired fasting glucose; G89.29 Other chronic pain
CPT/HCPCS: 36415; 80053; 80061; 83036; 85025; 85652; 86140